=== PATIENT | female | born 1990 | race African-American/Black ===

== ENCOUNTER → 2018-04-06 | Outpatient (CLI) | payer BC ==
--- NOTE | 2018-04-06 13:10 | RAD ---
MRCP WO CONTRAST dated 04/06/2018 10:30 AM Indication: upper abdomen pain, runny stools. Hx cholecystectomy x2 years. no priors . .. Comparison: No comparison is available. Technique: Routine multiplanar multisequence imaging performed. Single shot fast spin echo imaging performed in the axial and coronal plane along with thin and thick slab MRCP images in 3-D rotational reconstructed MRCP images. Findings: Intrahepatic and extrahepatic biliary tree are normal in caliber. Common bile duct measures about 2 mm diameter. No filling defect or focal stricture. No apparent mass at the pancreatic head. There is possible mild narrowing of the common hepatic ductal confluence seen on the 3-D images. The liver is homogeneous in signal. No significant dropout on the out of phase images. No discrete mass. No restricted diffusion abnormality. Gallbladder is surgically absent. The spleen is normal in size. Pancreas is normal in signal. No peripancreatic inflammatory changes. No evidence of pancreatic divisum. Adrenal glands and kidneys are unremarkable. No hydronephrosis. No retroperitoneal or mesenteric lymphadenopathy. No significant ascites. IMPRESSION: 1. No evidence of significant biliary ductal dilation, filling defect or stricture. 2. Possible mild smooth narrowing at the common hepatic duct just beyond the ductal confluence, nonspecific. This could be a normal variant. Prior episodes of cholangitis could also result in this appearance. 3. Status post cholecystectomy. Electronically signed by: Des Cheatham MD (04/06/2018 1:07 PM) [id number]
== END | disposition home or self-care (01) ==
LOC: MRI 11:17
PROVIDERS: ATTEND Internal Medicine Gastroenterology
DX: R10.84 Generalized abdominal pain (principal); Z90.49 Acquired absence of other specified parts of digestive tract
CPT/HCPCS: 74181